=== PATIENT | female | born 1950 | race Caucasian/White ===

== ENCOUNTER 2017-06-25 18:30 | Emergency (ER) | payer MEDICARE, BC, OTHER ==
[~2017-06-25] VITALS: Ht 157.5 cm; Wt 79.4 kg
[~2017-06-25 18:30] MED LIST: ALBU90OI INH; AMIT25 PO; CHOL10002 PO; CLON.5 PO; CLON1 PO; CONEST.625; CONESTTC VAG; CYCL10 PO; Caltrate Plus1 EACH PO; Cipro500 MG PO; ERGO50000 PO; FISH1000 PO; Flagyl500 MG PO; HYDCHL25 PO; HYDR1TAB94 PO; HYDSUL200 PO; Hair, Skin & N1 EACH PO; Imitrex25 MG PO; MAGOXI400 PO; MOXI400 PO; Naprosyn375 MG PO; Norco 5-325 Ta1 EACH PO; PANT40 PO; RANI150 PO; SIMV10 PO; SIMV40 PO; VITAMIN B125000 MCG PO; Vitamin C1000 M1 PO; Zithromax250 MG PO
[2017-06-25 20:06] LABS: Influenza A Negative (NEGATIVE); Influenza B Negative (NEGATIVE)
== END 2017-06-25 20:35 | disposition home or self-care (01) ==
LOC: ER 18:30
PROVIDERS: Nurse Practitioner Family
DX: J06.9 Acute upper respiratory infection, unspecified (principal); K21.9 Gastro-esophageal reflux disease without esophagitis; E78.5 Hyperlipidemia, unspecified; I10 Essential (primary) hypertension; Z91.09 Other allergy status, other than to drugs and biological substances; Z88.5 Allergy status to narcotic agent; Z88.6 Allergy status to analgesic agent; Z79.899 Other long term (current) drug therapy; Z90.49 Acquired absence of other specified parts of digestive tract
CPT/HCPCS: 71046; 87804; 99283

== ENCOUNTER 2019-04-02 19:53 | Emergency (ER) | payer MEDICARE, BC, OTHER ==
[~2019-04-02] VITALS: Ht 154.9 cm; Wt 81.2 kg
[2019-04-02 20:47] LABS: BASOPHILS ABSOLUTE AUTO 0.03 K/mm3 (0.00-0.23); BASOPHILS PERCENT AUTO 1 % (0-2); EOSINOPHILS ABSOLUTE AUTO 0.15 K/mm3 (0.00-0.68); EOSINOPHILS PERCENT AUTO 2 % (0-6); Hematocrit 36.7 % (33.0-51.0); Hemoglobin 12.1 g/dL (11.5-16.0); IMMATURE GRAN ABSOLUTE AUTO 0.01 K/mm3 (0.00-0.10); IMMATURE GRAN PERCENT AUTO 0 % (0-1); LYMPHOCYTES ABSOLUTE AUTO 2.43 K/mm3 (0.84-5.20); LYMPHOCYTES PERCENT AUTO 38 % (21-46); MONOCYTES ABSOLUTE AUTO 0.54 K/mm3 (0.16-1.47); MONOCYTES PERCENT AUTO 9 % (4-13); Mean Corpuscular Volume 94 fL (80-100); Mean Platelet Volume 9.7 fL (9.1-12.4); NEUTROPHILS PERCENT AUTO 50 % (41-73); Platelet Count 271 K/mm3 (150-400); RDW Coefficient Variation 12.2 % (11.7-14.2); White Blood Cell Count 6.36 K/mm3 (4.00-11.30)
[2019-04-02 21:08] LABS: Alanine Aminotransfer (ALT/SGP 19 U/L (12-78); Albumin, Blood 3.7 g/dL (3.4-5.0); Albumin/Globulin Ratio 1.2 (0.8-1.8); Alk Phos 51 U/L (50-136); Anion Gap 4 mmol/L (6-16); Aspartate Aminotrans (AST/SGOT 12 U/L (12-37); Bilirubin, Total 0.2 mg/dL (0.1-1.0); Blood Urea Nitrogen 19 mg/dL (8-24); Bun/Creatinine Ratio 24.2 (12.0-20.0); CO2, Blood 26 mmol/L (21-32); Calcium, Blood 8.5 mg/dL (8.5-10.1); Chloride, Blood 111 mmol/L (98-108); Creatinine, Blood 0.79 mg/dL (0.40-1.00); Globulin, Blood 3.2 g/dL (2.2-4.0); Glomerular Filtration Rate >60 (60-); Glucose, Blood 90 mg/dL (70-99); Potassium, Blood 3.9 mmol/L (3.5-5.5); Sodium, Blood 141 mmol/L (136-145); Total Protein, Blood 6.9 g/dL (6.4-8.2); Troponin I <0.015 ng/mL (0.000-0.040)
== END 2019-04-02 22:22 | disposition home or self-care (01) ==
LOC: ER 19:53
PROVIDERS: Emergency Medicine
DX: R20.2 Paresthesia of skin (principal); Z88.5 Allergy status to narcotic agent; Z88.6 Allergy status to analgesic agent; Z88.8 Allergy status to other drugs, medicaments and biological substances; Z79.899 Other long term (current) drug therapy; K21.9 Gastro-esophageal reflux disease without esophagitis; E78.5 Hyperlipidemia, unspecified
CPT/HCPCS: 36415; 71046; 80053; 84484; 85025; 93005; 93010; 99284-25

== ENCOUNTER 2019-05-13 11:36 | Emergency (ER) | payer MEDICARE, BC, OTHER ==
[~2019-05-13] VITALS: Ht 152.4 cm; Wt 81.2 kg
[2019-05-13] MEDS ORDERED: PANT40 PO (12:37)
[2019-05-13] MEDS ORDERED: HYDSUL200 PO (12:37)
[2019-05-13] MEDS ORDERED: Valium5 MG PO (12:49)
[2019-05-13] MEDS ORDERED: MELO7.5 PO (12:49)
== END 2019-05-13 13:16 | disposition home or self-care (01) ==
LOC: ER 11:36
DX: M62.830 Muscle spasm of back (principal); Z88.5 Allergy status to narcotic agent; Z88.8 Allergy status to other drugs, medicaments and biological substances; Z88.6 Allergy status to analgesic agent; Z79.899 Other long term (current) drug therapy; E78.00 Pure hypercholesterolemia, unspecified; K21.9 Gastro-esophageal reflux disease without esophagitis
CPT/HCPCS: 99283; A9270-GY

== ENCOUNTER 2020-03-14 07:43 | Day surgery (SDC) | payer MEDICARE, BC, OTHER ==
[~2020-03-14] VITALS: Ht 157.5 cm; Wt 83.4 kg
[~2020-03-14 07:43] MED LIST changes: +FISH OIL 1,2001 EAC7 PO; +MECL12.5 PO; +MELO7.5 PO; +Nitroglycerin0.4 MG SL; +ONDA4ODT MM; +RECLAST IV; +VITAMIN D5000 UNIT PO; +Valium5 MG PO; +ZOLEDRONIC5 MG/100 M IV; +Zantac150 MG; +Zocor40 MG PO
[2020-03-14] MEDS ORDERED: MELO7.5 (08:46)
[2020-03-14] MEDS ORDERED: ONDA4ODT (08:47)
== END 2020-03-14 11:10 | disposition home or self-care (01) ==
LOC: ORSCSDS 07:43
PROVIDERS: Podiatrist Foot & Ankle Surgery
PROC: 0SNP0ZZ Release Right Toe Phalangeal Joint, Open Approach (ICD-10-PCS; principal; 2020-03-14 09:30)
DX: M20.41 Other hammer toe(s) (acquired), right foot (principal); I10 Essential (primary) hypertension; E78.5 Hyperlipidemia, unspecified; K21.9 Gastro-esophageal reflux disease without esophagitis; Z87.891 Personal history of nicotine dependence; Z79.899 Other long term (current) drug therapy
CPT/HCPCS: J0690; J2250; J2405; J2704; J3010; J7120

== ENCOUNTER → 2020-07-09 | Outpatient (CLI) | payer MEDICARE, BC, OTHER ==
[~2020-07-09] MED LIST changes: +MELO7.5; +ONDA4ODT
== END | disposition home or self-care (01) ==
LOC: PLD 11:28 → LAB SHORT 11:28
DX: D48.5 Neoplasm of uncertain behavior of skin (principal)
CPT/HCPCS: 88305

== ENCOUNTER 2024-09-14 22:11 | Emergency (ER) | payer MEDICARE, BC, OTHER ==
[~2024-09-14] VITALS: Ht 154.9 cm; Wt 82.5 kg
[~2024-09-14 22:11] MED LIST changes: +Bactrim Ds Tab1 EACH PO
[2024-09-14] MEDS ORDERED: Acetaminophen 500 MG Tab PO ONE (23:25)
[2024-09-14] MEDS ORDERED: Ibuprofen 600 MG Tab PO ONE (23:25)
[2024-09-14 23:35] LABS: BASOPHILS ABSOLUTE AUTO 0.07 K/mm3 (0.00-0.23); BASOPHILS PERCENT AUTO 1 % (0-2); EOSINOPHILS ABSOLUTE AUTO 0.25 K/mm3 (0.00-0.68); EOSINOPHILS PERCENT AUTO 4 % (0-6); Hematocrit 34.2 % (33.0-51.0); Hemoglobin 11.4 g/dL (11.5-16.0); IMMATURE GRAN ABSOLUTE AUTO 0.01 K/mm3 (0.00-0.10); IMMATURE GRAN PERCENT AUTO 0 % (0-1); LYMPHOCYTES ABSOLUTE AUTO 2.37 K/mm3 (0.84-5.20); LYMPHOCYTES PERCENT AUTO 37 % (21-46); MONOCYTES ABSOLUTE AUTO 0.54 K/mm3 (0.16-1.47); MONOCYTES PERCENT AUTO 9 % (4-13); Mean Corpuscular HGB 30.7 pg (26.0-34.0); Mean Corpuscular HGB Conc 33.3 g/dL (31.5-36.5); Mean Corpuscular Volume 92 fL (80-100); Mean Platelet Volume 9.4 fL (9.1-12.4); NEUTROPHILS ABSOLUTE AUTO 3.09 K/mm3 (1.96-9.15); NEUTROPHILS PERCENT AUTO 49 % (41-73); Platelet Count 292 K/mm3 (150-400); RDW Coefficient Variation 12.3 % (11.7-14.2); RDW Standard Deviation 41.8 fL (35.1-46.3); Red Blood Cell Count 3.71 M/mm3 (3.80-5.20); White Blood Cell Count 6.33 K/mm3 (4.00-11.30)
[2024-09-15 00:03] LABS: Albumin, Blood 3.5 g/dL (3.4-5.0); Albumin/Globulin Ratio 1.1 (0.8-1.8); Bilirubin, Total 0.2 mg/dL (0.1-1.0); Bun/Creatinine Ratio 25.7 (12.0-20.0); Calcium, Blood 8.3 mg/dL (8.5-10.1); Creatinine, Blood 0.7 mg/dL (0.40-1.00); Globulin, Blood 3.1 g/dL (2.2-4.0); Magnesium, Blood 2.4 mg/dL (1.6-2.4); Potassium, Blood 3.7 mmol/L (3.5-5.5); Total Protein, Blood 6.6 g/dL (6.4-8.2)
[2024-09-15] MEDS ORDERED: ACET500 PO (00:52)
[2024-09-15 03:36] VITALS: BP 128/56
== END 2024-09-15 03:39 | disposition home or self-care (01) ==
LOC: ER 22:11
PROVIDERS: Student in an Organized Health Care Education/Training Program
DX: M79.602 Pain in left arm (principal); E78.00 Pure hypercholesterolemia, unspecified; Z79.899 Other long term (current) drug therapy; Z91.041 Radiographic dye allergy status; Z88.5 Allergy status to narcotic agent; Z88.6 Allergy status to analgesic agent
CPT/HCPCS: 71045; 80053; 83690; 83735; 83880; 84484; 85025; 93005; 93010; 99284-25; A9270

== ENCOUNTER 2024-12-24 09:32 | Emergency (ER) | payer MEDICARE, BC, OTHER ==
[~2024-12-24] VITALS: Ht 162.6 cm; Wt 90.7 kg
[~2024-12-24 09:32] MED LIST changes: +ACET500 PO
[2024-12-24 09:47] VITALS: BP 132/60
[2024-12-24] MEDS ORDERED: Albuterol 2.5 MG/3 ML VIAL INH ONE (11:00)
[2024-12-24] MEDS ORDERED: Ipratropium Bromide INH 0.02% 0.5 mg/2.5ML Vial INH SCH (11:00)
== END 2024-12-24 10:55 | disposition home or self-care (01) ==
LOC: ER 09:32
DX: S61.211A Laceration without foreign body of left index finger without damage to nail, initial encounter (principal); Z23 Encounter for immunization; K21.9 Gastro-esophageal reflux disease without esophagitis; E78.00 Pure hypercholesterolemia, unspecified; Z91.041 Radiographic dye allergy status; Z88.5 Allergy status to narcotic agent; Z88.6 Allergy status to analgesic agent; Z79.899 Other long term (current) drug therapy; Z59.89 Other problems related to housing and economic circumstances; W29.0XXA Contact with powered kitchen appliance, initial encounter
CPT/HCPCS: 12001; 90471; 90715; 99282-25